=== PATIENT | female | born 1960 | race Caucasian/White ===

== ENCOUNTER → 2017-07-23 | Outpatient (CLI) | payer BC ==
[2017-07-23 07:00] LABS: HEMATOCRIT 43.3 % (36.0-47.0); HEMOGLOBIN 14.2 g/dl (12.0-16.0); MEAN CORPUSCULAR HEMOGLOBIN 29.2 pg (27.0-33.0); MEAN CORPUSCULAR HGB CONC 32.8 g/dl (32.0-36.5); MEAN CORPUSCULAR VOLUME 89.1 fl (80.0-96.0); PLATELET COUNT, AUTOMATED 201 10^3/uL (150-450); RED BLOOD COUNT 4.86 10^6/uL (4.00-5.40); RED CELL DISTRIBUTION WIDTH 12.5 % (11.5-14.5); WHITE BLOOD COUNT 6.8 10^3/uL (4.0-10.0)
[2017-07-23 07:28] LABS: ALBUMIN 3.7 GM/DL (3.2-5.2); ALBUMIN/GLOBULIN RATIO 1.37 (1.00-1.93); ALKALINE PHOSPHATASE 79 U/L (45-117); ALT/SGPT 27 U/L (12-78); ANION GAP 6 MEQ/L (8-16); AST/SGOT 27 U/L (7-37); BILIRUBIN,TOTAL 0.3 MG/DL (0.2-1.0); BLOOD UREA NITROGEN 16 MG/DL (7-18); CALCIUM LEVEL 9.9 MG/DL (8.5-10.1); CARBON DIOXIDE LEVEL 32 MEQ/L (21-32); CHLORIDE LEVEL 104 MEQ/L (98-107); CHOLESTEROL LEVEL 205 MG/DL (<200); CHOLESTEROL RISK RATIO 2.847 (<5); GLOMERULAR FILTRATION RATE > 60.0 (>51); GLUCOSE, FASTING 88 MG/DL (70-105); HDL CHOLESTEROL 72 MG/DL (>40); LDL CHOLESTEROL 115.2 MG/DL (<100); NON-HDL-C 133 MG/DL; POTASSIUM SERUM 4.1 MEQ/L (3.5-5.1); SODIUM LEVEL 142 MEQ/L (136-145); TOTAL PROTEIN 6.4 GM/DL (6.4-8.2); TRIGLYCERIDES LEVEL 89 MG/DL (<150)
== END ==
LOC: M LAB 06:16
DX: Z00.00 Encounter for general adult medical examination without abnormal findings (principal)
CPT/HCPCS: 80053

== ENCOUNTER → 2018-03-25 | Outpatient (REF) | payer BC | LOC: M SFHCPLAZ 10:39 | DX: L08.9 Local infection of the skin and subcutaneous tissue, unspecified (principal) | CPT/HCPCS: 88305 ==

== ENCOUNTER → 2018-08-04 | Outpatient (REF) | payer BC | LOC: M SFHCPLAZ 17:30 | PROVIDERS: ATTEND Dermatology | DX: L57.0 Actinic keratosis (principal) ==

== ENCOUNTER → 2018-09-17 | Outpatient (CLI) | payer BC ==
--- NOTE | 2018-09-17 15:45 | REPMRS ---
Patient History The patient states she had a clinical breast exam in 05/06 Family history of breast cancer at age 50 or over in maternal aunt. Digital Woman Screen Mammo: September 17, 2018 - Exam #: [id number] Bilateral CC and MLO view(s) were taken. Technologist: Stephanie Mckeon, Technologist Prior study comparison: May 21, 2017, digital woman screen mammo performed at [facility]. March 28, 2016, digital woman screen mammo performed at [facility]. May 21, 2012, digital woman screen mammo performed at [facility]. FINDINGS: The breast tissue is heterogeneously dense. This may lower the sensitivity of mammography. There is a moderate amount of heterogeneously dense fibroglandular tissue which is fairly symmetric. There is no interval development of dominant mass, architectural distortion, or clustered microcalcification typical of malignancy. There has been no change in the appearance of the mammogram from the prior studies. 3-D tomosynthesis shows no additional findings. Assessment: BI-RADS/ACR category 1 mammogram. Negative Mammogram. Recommendation Routine screening mammogram of both breasts in 1 year (for women over age 40). This patient's Lifetime Breast Cancer RIsk is estimated at 14.3 %. This mammogram was interpreted with the aid of an FDA-approved computer-aided dectection system. Electronically Signed By: Deven Choi MD 09/17/18 [id number]
== END ==
LOC: M WHC 14:24
PROVIDERS: ATTEND Obstetrics & Gynecology
DX: Z12.31 Encounter for screening mammogram for malignant neoplasm of breast (principal)

== ENCOUNTER → 2019-12-30 | Outpatient (REF) | payer BC ==
[2019-12-30 10:05] LABS: HEMATOCRIT 43.9 % (36.0-47.0); HEMOGLOBIN 14.1 g/dl (12.0-15.5); MEAN CORPUSCULAR HEMOGLOBIN 29.8 pg (27.0-33.0); MEAN CORPUSCULAR HGB CONC 32.1 g/dl (32.0-36.5); MEAN CORPUSCULAR VOLUME 92.8 fl (80.0-96.0); PLATELET COUNT, AUTOMATED 231 10^3/uL (150-450); RED BLOOD COUNT 4.73 10^6/uL (4.00-5.40)
[2019-12-30 10:10] LABS: ALBUMIN 3.5 GM/DL (3.2-5.2); ALT/SGPT 29 U/L (12-78); BILIRUBIN,TOTAL 0.4 MG/DL (0.2-1.0); BLOOD UREA NITROGEN 18 MG/DL (7-18); CALCIUM LEVEL 9.8 MG/DL (8.8-10.2); CARBON DIOXIDE LEVEL 32 MEQ/L (21-32); CHLORIDE LEVEL 107 MEQ/L (98-107); CHOLESTEROL LEVEL 169 MG/DL (<200); CHOLESTEROL RISK RATIO 2.485 (<5); CREATININE FOR GFR 0.68 MG/DL (0.55-1.30); GLOMERULAR FILTRATION RATE > 60.0 (>45); GLUCOSE, FASTING 87 MG/DL (70-100); HDL CHOLESTEROL 68 MG/DL (>40); LDL CHOLESTEROL 89 MG/DL (<100); NON-HDL-C 101 MG/DL; POTASSIUM SERUM 4.5 MEQ/L (3.5-5.1); SODIUM LEVEL 144 MEQ/L (136-145); TOTAL PROTEIN 6.1 GM/DL (6.4-8.2); TRIGLYCERIDES LEVEL 62 MG/DL (<150)
== END ==
LOC: M SFHCPLAZ 08:02
PROVIDERS: ATTEND Internal Medicine
DX: Z00.00 Encounter for general adult medical examination without abnormal findings (principal)

== ENCOUNTER → 2020-01-11 | Outpatient (CLI) | payer BC ==
--- NOTE | 2020-01-11 16:16 | REPPI ---
Chest x-ray: Two views. History: Weight loss. Findings: The lungs are well inflated and clear. Pleural angles are sharp. Cardiomediastinal silhouette is unremarkable. No bony lesion is seen. Pulmonary vasculature is not increased. Impression: No active disease. Electronically Signed by Ashkan Choi MD 01/11/2020 04:08 P
== END ==
LOC: M PLAIMG 15:53
PROVIDERS: ATTEND Internal Medicine
DX: R63.4 Abnormal weight loss (principal)

== ENCOUNTER → 2020-02-03 | Outpatient (CLI) | payer BC ==
--- NOTE | 2020-02-03 10:10 | REP ---
ULTRASOUND ABDOMEN: Real-time sonographic evaluation of the abdomen performed. Gallbladder demonstrates no evidence of intraluminal sludge or calculi, wall thickening or pericholecystic fluid. There is no intrahepatic or extrahepatic biliary dilatation, common bile duct measuring 2 mm. The liver is normal in size and echotexture with no mass. The pancreas is not completely seen due to bowel gas overlying the tail of the pancreas but the visualized portions are unremarkable with no mass. The spleen is normal size with no intrinsic abnormality measuring 10.1 x 9.9 x 5.3 cm. The kidneys are normal in size and echotexture, right kidney measuring 11.4 x 5.3 x 4.2 cm and left kidney 12.5 x 6.2 x 5.6 cm. There is no mass or hydronephrosis. Abdominal aorta is normal in caliber with no aneurysm, proximally measuring 2.4 cm in AP dimension and distally 2.0 cm. No ascites is seen. IMPRESSION: Negative abdominal ultrasound.
== END ==
LOC: M WHC 07:57
PROVIDERS: ATTEND Internal Medicine
DX: R63.4 Abnormal weight loss (principal)

== ENCOUNTER → 2020-02-09 | Outpatient (CLI) | payer BC | LOC: M WHC 11:46 | PROVIDERS: ATTEND Obstetrics & Gynecology | DX: Z12.31 Encounter for screening mammogram for malignant neoplasm of breast (principal); Z78.0 Asymptomatic menopausal state ==

== ENCOUNTER → 2020-03-09 | Outpatient (CLI) | payer BC ==
[~2020-03-09] MED LIST: GASTROGRAFIN SOLUTION 30ML (Q9963) As Ordered ONE; ISOVUE-370 76% 100ML VIAL As Ordered ONE
--- NOTE | 2020-04-10 09:48 | REP ---
CT OF THE ABDOMEN AND PELVIS WITH IV AND ORAL CONTRAST: HISTORY: Weight loss. COMPARISON: None. CONTRAST DOSE: 100 ml of intravenous Isovue 370. FINDINGS: Preliminary digital kindergarten aide radiograph demonstrates an unremarkable bowel gas pattern. The lung bases are clear on axial CT images. No pleural effusion or upper abdominal ascites. The liver is normal in size, homogeneous in texture. No focal hepatic lesion. The spleen is normal in size and homogeneous. Normal adrenal glands are seen bilaterally. No renal mass is observed. No hydronephrosis or calculus is apparent. No abnormality is noted in the pancreas. The gallbladder is unremarkable on CT imaging. No retroperitoneal mass or adenopathy is observed. The small bowel loops are unremarkable. No large bowel mass lesion is seen. There is no evidence of diverticulosis or diverticulitis. A normal appendix is seen posterior to the cecum. No vascular abnormality is observed. The abdominal aorta is normal in caliber and somewhat tortuous. No pelvic mass or adenopathy is seen. No ovarian lesion is observed. No bony destructive lesion. IMPRESSION: No acute abdominal or pelvic abnormality. MTDD
== END ==
LOC: M RAD 14:10
PROVIDERS: ATTEND Internal Medicine
DX: R63.4 Abnormal weight loss (principal)
CPT/HCPCS: 74177; Q9963; Q9967

== ENCOUNTER → 2020-04-01 | Outpatient (CLI) | payer BC | LOC: M LABSMTC 08:14 | PROVIDERS: ATTEND Anesthesiology | DX: Z01.818 Encounter for other preprocedural examination (principal); Z11.59 Encounter for screening for other viral diseases; Z20.828 Contact with and (suspected) exposure to other viral communicable diseases | CPT/HCPCS: C9803; U0003 ==

== ENCOUNTER 2020-04-06 06:57 | Day surgery (SDC) | payer BC ==
[~2020-04-06] VITALS: Ht 175.3 cm; Wt 61.7 kg
[~2020-04-06 06:57] MED LIST changes: -GASTROGRAFIN SOLUTION 30ML (Q9963) As Ordered ONE; -ISOVUE-370 76% 100ML VIAL As Ordered ONE; +NS 1,000 ML IV ONE
[2020-04-06] MEDS ORDERED: LIDOCAINE 2% 100MG/5ML SDV (FOR ANES.) As Ordered ONE (07:36)
[2020-04-06] MEDS ORDERED: fentaNYL 100 MCG/2 ML INJECTION (J3010) As Ordered ONE (07:36)
[2020-04-06] MEDS ORDERED: propofoL 500 MG/50 ML VIAL As Ordered ONE (07:36)
--- NOTE | 2020-04-06 07:48 | ROOR ---
Patient Name: Fide Gonzalez Procedure Date: 04/06/2020 7:32 AM Date of : 1960 Age: 60 Room: [facility] Gender: Female Note Status: Finalized Procedure: Upper Endoscopy + Biopsies Indications: Weight loss Providers: Cj Hebert MD Referring MD: Gray Poon MD Requesting Provider: Medicines: Monitored Anesthesia Care Complications: No immediate complications. Procedure: Pre-Anesthesia Assessment: - The heart rate, respiratory rate, oxygen saturations, blood pressure, adequacy of pulmonary ventilation, and response to care were monitored throughout the procedure. The Endoscope was introduced through the mouth, and advanced to the second part of duodenum. The upper GI endoscopy was accomplished without difficulty. The patient tolerated the procedure well. Findings: The Z-line was regular and was found 44 cm from the incisors. Multiple biopsies were obtained with cold forceps for evaluation to rule out Miller's Esophagus randomly at the gastroesophageal junction. Localized mildly erythematous mucosa without bleeding was found in the gastric antrum. Biopsies were taken with a cold forceps for Helicobacter pylori testing. The exam of the duodenum was otherwise normal. Biopsies for histology were taken with a cold forceps in the first portion of the duodenum for evaluation of celiac disease. The exam was otherwise without abnormality. Impression: - Z-line regular, 44 cm from the incisors. - Erythematous mucosa in the antrum. Biopsied. - The examination was otherwise normal. - Multiple biopsies were obtained at the gastroesophageal junction. - Biopsies were taken with a cold forceps for evaluation of celiac disease. - The examination was otherwise normal. Recommendation: - Patient has a contact number available for emergencies. The signs and symptoms of potential delayed complications were discussed with the patient. Return to normal activities tomorrow. Written discharge instructions were provided to the patient. - High fiber diet. - Discharge patient to home. - Continue present medications. - Await pathology results. - Telephone GI clinic for pathology results in 1 week. - Repeat upper endoscopy for surveillance based on pathology results. - Return to referring physician. - The findings and recommendations were discussed with the patient. Cj Hebert MD Cj Hebert MD 04/06/2020 7:47:26 AM Electronically signed by Cj Hebert MD Number of Addenda: 0 Note Initiated On: 04/06/2020 7:32 AM Estimated Blood Loss: Estimated blood loss: none.
--- NOTE | 2020-04-06 08:08 | ROOR ---
Patient Name: Fide Gonzalez Procedure Date: 04/06/2020 7:32 AM Date of : 1960 Age: 60 Room: [facility] Gender: Female Note Status: Finalized Procedure: Total Colonoscopy to Cecum Indications: Screening for colorectal malignant neoplasm Providers: Cj Hebert MD Referring MD: Gray Poon MD Requesting Provider: Medicines: Monitored Anesthesia Care Complications: No immediate complications. Procedure: Pre-Anesthesia Assessment: - The heart rate, respiratory rate, oxygen saturations, blood pressure, adequacy of pulmonary ventilation, and response to care were monitored throughout the procedure. The Colonoscope was introduced through the anus and advanced to the cecum, identified by appendiceal orifice and ileocecal valve. The colonoscopy was performed without difficulty. The patient tolerated the procedure well. The quality of the bowel preparation was good. Findings: The perianal and digital rectal examinations were normal. Non-bleeding internal hemorrhoids were found during retroflexion. The hemorrhoids were small and Grade I (internal hemorrhoids that do not prolapse). Scattered small-mouthed diverticula were found in the recto-sigmoid colon and sigmoid colon. The exam was otherwise without abnormality on direct and retroflexion views. Impression: - Non-bleeding internal hemorrhoids. - Diverticulosis in the recto-sigmoid colon and in the sigmoid colon. - The examination was otherwise normal on direct and retroflexion views. - No specimens collected. - The exam was otherwise normal to the cecum. Recommendation: - Patient has a contact number available for emergencies. The signs and symptoms of potential delayed complications were discussed with the patient. Return to normal activities tomorrow. Written discharge instructions were provided to the patient. - High fiber diet. - Discharge patient to home. - Continue present medications. - Repeat colonoscopy in 10 years for screening purposes. - Return to referring physician. - The findings and recommendations were discussed with the patient. Cj Hebert MD Cj Hebert MD 04/06/2020 8:07:47 AM Electronically signed by Cj Hebert MD Number of Addenda: 0 Note Initiated On: 04/06/2020 7:32 AM Estimated Blood Loss: Estimated blood loss: none.
[2020-04-06 08:34] VITALS: BP 95/72
== END 2020-04-06 08:37 | disposition home or self-care (01) ==
LOC: M OPP 06:57
PROVIDERS: ATTEND Internal Medicine Gastroenterology
DX: K57.30 Diverticulosis of large intestine without perforation or abscess without bleeding (principal); K64.0 First degree hemorrhoids; R63.4 Abnormal weight loss; K31.89 Other diseases of stomach and duodenum
CPT/HCPCS: 43239; 45378; 88305; J3010

== ENCOUNTER 2020-09-30 13:37 | Emergency (ER) | payer BC ==
[~2020-09-30] VITALS: Ht 175.3 cm; Wt 63.2 kg
[2020-09-30] MEDS ORDERED: IBUP-1114 PO (13:44)
[2020-09-30 14:05] LABS: BASO % 0.4 % (0.0-1.0); EOS % 0.4 % (0.0-3.0); HEMOGLOBIN 14.5 g/dl (12.0-15.5); LYMPH # 1.2 10^3/uL (1.5-5.0); LYMPH % 14.3 % (24.0-44.0); MEAN CORPUSCULAR HEMOGLOBIN 29.8 pg (27.0-33.0); MEAN CORPUSCULAR HGB CONC 32.2 g/dl (32.0-36.5); MEAN CORPUSCULAR VOLUME 92.6 fl (80.0-96.0); MONO # 0.5 10^3/uL (0.0-0.8); MONO % 6.2 % (2.0-8.0); NEUTROPHILS # 6.7 10^3/uL (1.5-8.5); NEUTROPHILS % 78.5 % (36.0-66.0); PLATELET COUNT, AUTOMATED 256 10^3/uL (150-450); RED BLOOD COUNT 4.86 10^6/uL (4.00-5.40); WHITE BLOOD COUNT 8.6 10^3/uL (4.0-10.0)
[2020-09-30 14:13] LABS: INR 1.02; PROTHROMBIN TIME 13.6 SECONDS (12.5-14.3)
[2020-09-30 14:14] LABS: PARTIAL THROMBOPLASTIN TIME 28.9 SECONDS (24.2-38.5)
[2020-09-30 14:41] LABS: ALBUMIN 3.9 GM/DL (3.2-5.2); ALT/SGPT 30 U/L (12-78); BILIRUBIN,DIRECT 0.2 MG/DL (0.0-0.2); BILIRUBIN,TOTAL 0.5 MG/DL (0.2-1.0); BLOOD UREA NITROGEN 19 MG/DL (7-18); CALCIUM LEVEL 9.8 MG/DL (8.8-10.2); CARBON DIOXIDE LEVEL 32 MEQ/L (21-32); CHLORIDE LEVEL 108 MEQ/L (98-107); CK-MB VALUE MASS 2.9 NG/ML (<3.6); CPK CREATINE PHOSPHOKINASE 106 U/L (26-192); CREATININE FOR GFR 0.66 MG/DL (0.55-1.30); FREE T4 0.92 NG/DL (0.76-1.46); GLOMERULAR FILTRATION RATE > 60.0 (>45); GLUCOSE, FASTING 112 MG/DL (70-100); LIPASE 124 U/L (73-393); MB/CK RELATIVE INDEX 2.74 (< OR =4); NT-PRO BNP 112 PG/ML (<125); POTASSIUM SERUM 3.9 MEQ/L (3.5-5.1); SODIUM LEVEL 143 MEQ/L (136-145); TOTAL PROTEIN 6.6 GM/DL (6.4-8.2); TROPONIN I 0.04 NG/ML (< 0.10)
--- NOTE | 2020-09-30 15:06 | REP ---
INDICATION: SOB COMPARISON: 01/11/2020 TECHNIQUE: Portable AP view of the chest FINDINGS: The mediastinum and cardiac silhouette are stable and within normal limits for portable technique. The lung [place] are clear without acute consolidation, effusion, or pneumothorax. Skeletal structures are intact. IMPRESSION: No acute cardiopulmonary process appreciated. <Electronically signed by Paco Ojeda > 09/30/20 [id number]
[2020-09-30 15:51] VITALS: BP 119/68
--- NOTE | 2020-09-30 19:20 | ECGEPIP ---
[facility] - ED Test Date: 2020-09-30 Pat Name: JONE DE LA TORRE Department: Room: - Gender: Female [employer]: [id number] : 1960 Requested By: DANETTE MCCLURE Order Number: [id number] Reading MD: Sj Barrett Measurements Intervals [place] Rate: 70 P: 66 FL: 136 QRS: 77 QRSD: 86 T: 32 QT: 382 QTc: 412 Interpretive Statements Sinus rhythm with frequent premature ventricular complexes POOR R WAVE PROGRESSION Minimal voltage criteria for LVH, may be normal variant ( Sokolow-Thakkar ) NO PRIORS FOR COMPARISON Electronically Signed on 09-30-2020 19:20:14 EDT by Sj Barrett
== END 2020-09-30 16:03 | disposition home or self-care (01) ==
LOC: M ED 13:37
DX: I49.3 Ventricular premature depolarization (principal); R06.02 Shortness of breath